=== PATIENT | female | born 1980 | race Caucasian/White ===

== ENCOUNTER 2019-03-10 00:48 | Emergency (ER) | payer SELFPAY ==
[2019-03-10 01:03] VITALS: O2SAT 97
[2019-03-10] MEDS ORDERED: DiphenhydrAMINE 50 mg/ml Inj IVP STA (01:10)
--- NOTE | 2019-03-10 01:10 | C.PDOC ---
History Of Present Illness patient took Excedrin for headache and then developed a diffuse urticarial rash. Speaking in complete sentences. No f/c/n/v. No drooling. Time Seen by Provider: 03/10/19 01:10 Chief Complaint (Nursing): Allergic Reaction History Per: Patient History/Exam Limitations: no limitations Onset/Duration Of Symptoms: Hrs Current Symptoms Are (Timing): Still Present Context: Other Possible Cause: Medication Associated Symptoms: Skin Rash, Swelling, Itching. denies: Trouble Swallowing, Dizziness Home/EMS Treatment: None Severity: Moderate Pain Scale Rating Of: 4 Recent travel outside of the [place]: No Additional History Per: Patient Past Medical History Reviewed: Historical Data, Nursing Documentation, Vital Signs Vital Signs: Last Vital Signs Temp 98.1 F 03/10/19 00:54 Pulse 92 H 03/10/19 00:54 Resp 16 03/10/19 00:54 BP 184/114 H 03/10/19 00:54 Pulse Ox 97 03/10/19 00:54 - Medical History PMH: HTN - [facility] Procedures CLOSURE SKIN & SUBCUTANEOUS NEC (03/18/15) TETANUS TOXOID ADMINIST (09/21/14) Family History: States: No Known Family Hx - Social History Hx Alcohol Use: No Hx Substance Use: No - Immunization History Hx Tetanus Toxoid Vaccination: No Hx Influenza Vaccination: Yes Hx Pneumococcal Vaccination: No Review Of Systems Constitutional: Negative for: Fever, Chills Eyes: Negative for: Redness Cardiovascular: Negative for: Chest Pain Respiratory: Negative for: Shortness of Breath, Wheezing Gastrointestinal: Negative for: Abdominal Pain Genitourinary: Negative for: Dysuria Skin: Positive for: Rash Neurological: Negative for: Weakness Psych: Negative for: Anxiety Physical Exam - Physical Exam Appears: Non-toxic Skin: Warm, Dry, Other (urticarial rash) Eye(s): bilateral: Normal Inspection Oral Mucosa: Moist Tongue: Normal Appearing Lips: Swelling (mild) Throat: No Erythema, No Exudate, No Drooling Chest: Symmetrical Cardiovascular: Rhythm Regular Respiratory: No Rales, No Rhonchi, No Wheezing Neurological/Psych: Oriented x3 Gait: Steady ED Course And Treatment O2 Sat by Pulse Oximetry: 97 Pulse Ox Interpretation: Normal Reevaluation Time: 03:15 Reassessment Condition: Improved Critical Care Time - Critical Care Note Total Time (in mins): 30 Documented critical care: time excludes all time spent performing seperately billable procedures. Medical Decision Making Medical Decision Making: Upon provider reevaluation patient is feeling better, is medically stable, and requires no further treatment in the ED at this time. Patient will be discharged home with Rx for prednisone, epipen . Counseling was provided and all questions were answered regarding diagnosis and need for follow up with the referred clinic. There is agreement to discharge plan. Return if symptoms persist or worsen. Disposition Counseled Patient/Family Regarding: Studies Performed, Diagnosis, Need For Followup, Rx Given - Disposition Referrals: [facility] [Outside] [facility] [Outside] Disposition: HOME/ ROUTINE Disposition Time: 01:10 Condition: FAIR Additional Instructions: Please return if symptoms recur. Also use benadryl, pepcid and claritin Prescriptions: Epinephrine [Epipen] 0.3 mg IJ ONCE PRN #2 auto.injct PRN Reason: Anaphylaxis Prednisone [Deltasone] 20 mg PO DAILY #5 tablet Instructions: Hives, Drug Allergy Forms: [employer] (Polish) - Clinical Impression Clinical Impression: Urticaria, Drug allergy
[2019-03-10] MEDS ORDERED: Sodium Chloride 0.9% 1,000 ML IV ONE (01:11)
[2019-03-10] MEDS ORDERED: DiphenhydrAMINE 50 mg/ml Inj ONE (01:12)
[2019-03-10 04:17] VITALS: BP 145/92; PULSE 96; RESP 16; TEMP 97.6
== END 2019-03-10 04:30 | disposition home or self-care (01) ==
LOC: C.ER 00:48
DX: L50.9 Urticaria, unspecified (principal); T39.1X5A Adverse effect of 4-Aminophenol derivatives, initial encounter; I10 Essential (primary) hypertension
CPT/HCPCS: 96361; 96374; 96375; 99284; J1200; J2930; J7030